=== PATIENT | male | born 1945 | race Caucasian/White ===

== ENCOUNTER 2024-11-11 10:02 | Emergency (ER) | payer MEDICARE, OTHER ==
[~2024-11-11] VITALS: Ht 182.9 cm; Wt 106.4 kg
[2024-11-11 11:49] LABS: INFLUENZA A AG NEGATIVE (NEGATIVE); INFLUENZA B AG NEGATIVE (NEGATIVE)
[2024-11-11 11:50] LABS: CORONAVIRUS COVID-19 AG POSITIVE (NEGATIVE)
[2024-11-11] MEDS ORDERED: BENZONATATE100 MG PO (12:17)
[2024-11-11 12:30] VITALS: PULSE 73; RESP 18; TEMP 98.3; O2SAT 98
== END 2024-11-11 12:32 | disposition home or self-care (01) ==
LOC: ER 10:45
DX: R05.9 Cough, unspecified (principal); U07.1 COVID-19; R09.89 Other specified symptoms and signs involving the circulatory and respiratory systems; I25.10 Atherosclerotic heart disease of native coronary artery without angina pectoris
CPT/HCPCS: 99283